=== PATIENT | female | born 1985 | race Caucasian/White ===

== ENCOUNTER 2019-05-18 07:53 | Outpatient (REF) | payer BC, SELFPAY | END 2019-05-18 08:13 | LOC: NCHCN 07:53 | PROVIDERS: PCP Nurse Practitioner Family; Visit Provider Nurse Practitioner Family | DX: R30.0 Dysuria (principal) | CPT/HCPCS: 87077; 87086; 87186 ==

== ENCOUNTER 2021-01-01 22:25 | Outpatient (REF) | payer BC, SELFPAY ==
[2021-01-02 19:51] LABS: COVID-19 RT-PCR UVMMC Result Negative (Negative)
== END 2021-01-01 22:26 | disposition home or self-care (01) ==
LOC: LBN 22:25
PROVIDERS: PCP Nurse Practitioner Family; Visit Provider Physician Assistant Medical
DX: Z20.822 Contact with and (suspected) exposure to COVID-19 (principal)
CPT/HCPCS: U0003

== ENCOUNTER 2022-05-20 20:11 | Outpatient (REF) | payer BC, SELFPAY ==
[2022-05-20 19:54] LABS: Iron 13 ug/dL (50-170)
[2022-05-20 20:22] LABS: Vitamin D 25 Total 12.8 ng/mL (30-100)
[2022-05-20 20:24] LABS: ALT 20 U/L (14-59); AST 19 U/L (15-37); Albumin 4.4 g/dL (3.4-5.0); Alkaline Phosphatase 73 U/L (46-116); Anion Gap 12.9 mmol/L (3-11); BUN 14 mg/dL (7-18); Bilirubin, Total 0.2 mg/dL (0.2-1.0); CO2 24.1 mmol/L (21.0-32.0); CREATININE 0.9 mg/dL (0.55-1.02); Calcium 9.5 mg/dL (8.5-10.1); Chloride 102 mmol/L (98-107); Estimated GFR 83.92 (mL/min/1.73m2); Ferritin 10 ng/mL (8-252); Glucose 77 mg/dL (74-106); Potassium 4.2 mmol/L (3.5-5.1); Sodium 139 mmol/L (136-145); TSH (W/Ref FT4) 0.93 uIU/mL (0.36-3.74); Total Protein 7.5 g/dL (6.4-8.2); Vitamin B12 500 pg/mL (193-986)
== END 2022-05-20 20:12 | disposition home or self-care (01) ==
LOC: NCHCN 20:11
PROVIDERS: Visit Provider Nurse Practitioner Family
DX: R53.83 Other fatigue (principal); N92.0 Excessive and frequent menstruation with regular cycle; G43.109 Migraine with aura, not intractable, without status migrainosus; E55.9 Vitamin D deficiency, unspecified
CPT/HCPCS: 80053; 82306; 82607; 82728; 83540; 84443

== ENCOUNTER 2022-05-22 09:23 | Outpatient (REF) | payer BC, SELFPAY ==
[2022-05-22 14:58] LABS: Abs Immature Grans 0.02 10^3/uL (0.0-0.06); Absolute Eosinophil Count 0.83 10^3/uL (0.0-0.7); Absolute Monocyte Count 0.55 10^3/uL (0.1-0.8); Basophils % 1.4; Eosinophils % 11.7; HCT 36.4 % (36.0-46.0); HGB 11.6 g/dL (11.2-15.7); Immature Grans % 0.3; Lymphocytes % 32.4; MCH 25.2 pg (27.0-33.0); MCHC 31.9 % (32.0-36.0); MCV 79 fL (80-95); Monocytes % 7.7; Neutrophils % 46.5; Platelet Count 223 10^3/uL (130-400); RDW 17.2 % (11.7-14.6); RDW-SD 47.9 fL
== END 2022-05-22 09:24 | disposition home or self-care (01) ==
LOC: NCHCN 09:23
PROVIDERS: Visit Provider Nurse Practitioner Family
DX: Z00.00 Encounter for general adult medical examination without abnormal findings (principal); R53.83 Other fatigue
CPT/HCPCS: 85025

== ENCOUNTER 2022-07-09 10:21 | Outpatient (REF) | payer BC, SELFPAY ==
--- NOTE | 2022-07-09 10:00 | PAPFT_PTH ---
PATIENT: Justina Brennan LOC: [facility] U#:[id number] AGE/SX: 36/F ROOM: RE07/09/[address]: Loan Gentile DO : 1985 BED: DIS: 07/09/2022 SPEC #: [id number] RECD: 07/09/22 12:41 STATUS: QUETA REQ #: [id number] YAHAIRA: 07/09/22 10:[address]: Loan Gentile [facility] Cytology RECD BY: Nataliia Renee Tissues: 1 - CX/ENDOCX FOR PAP SMEARS Procedures: PAP THIN PREP/[facility] Screening HPV DNA PROBE Comments: [id number] (CHLAMYDIA/GC)
--- NOTE | 2022-07-09 10:00 | ENDOMET_PTH ---
PATIENT: Justina Brennan LOC: [facility] U#:[id number] AGE/SX: 36/F ROOM: RE07/09/[address]: Loan Gentile DO : 1985 BED: DIS: 07/09/2022 SPEC #: [id number] RECD: 07/09/22 12:37 STATUS: QUETA REQ #: [id number] YAHAIRA: 07/09/22 10:[address]: Loan Gentile DEPT: Surgical Specimen RECD BY: Nataliia Renee Tissues: 1 - ENDOMETRIUM BX/UNIQUEETTE Procedures: GROSS AND MICRO LEVEL 4 Comments: [id number]
[2022-07-10 14:31] LABS: Chlamydia Result Negative (Negative); GC Result Negative (Negative)
== END 2022-07-09 10:22 | disposition home or self-care (01) ==
LOC: LBN 10:21
PROVIDERS: Visit Provider Obstetrics & Gynecology
DX: Z11.3 Encounter for screening for infections with a predominantly sexual mode of transmission (principal); Z12.4 Encounter for screening for malignant neoplasm of cervix; N93.8 Other specified abnormal uterine and vaginal bleeding; N85.8 Other specified noninflammatory disorders of uterus; Z11.51 Encounter for screening for human papillomavirus (HPV)
CPT/HCPCS: 87491; 87591; 88142; 88305; 87624

== ENCOUNTER 2022-11-15 16:25 | Outpatient (REF) | payer BC, SELFPAY ==
[2022-11-18 14:23] LABS: Chlamydia Result Negative (Negative); GC Result Negative (Negative)
== END 2022-11-15 16:26 | disposition home or self-care (01) ==
LOC: LBN 16:25
PROVIDERS: Visit Provider Obstetrics & Gynecology
DX: Z11.3 Encounter for screening for infections with a predominantly sexual mode of transmission (principal)
CPT/HCPCS: 87491; 87591

== ENCOUNTER → 2023-10-23 01:01 | Outpatient (CLI) | payer BC, SELFPAY ==
--- NOTE | 2023-10-23 | DI.MAMMO_ITS ---
Exam(s) MAMMO SCREENING EXAM: MAMMO SCREENING CLINICAL HISTORY: Baseline screening, Z12.31. TECHNIQUE: Bilateral full field digital CC and MLO mammographic images were obtained with 3D tomosyn thesis and utilizing computer aided detection (CAD). COMPARISON: None. This is a baseline mammogram on a 38-year-old FINDINGS: Fibroglandular tissue pattern is moderately dense. There are no CAD designations. There are no new spiculated masses nor malignant appearing microcalcification groups. There is no significant architectural distortion nor skin thickening-retraction. IMPRESSION: No radiographic evidence of malignancy. BI-RADS Category 1 - Negative Breast Density - Category C - Heterogeneously dense Breast density Category C or D implies that the patient has dense breast tissue. Dense breast tissue can make it harder to find cancer on a mammogram. Dense breast tissue is also associated with an incr eased risk of breast cancer. This information about the result of the mammogram report was provided to the patient to raise their awareness. Use this report when you speak with the patient about their risks for breast cancer, which includes their family history. At that time, you may recommend additional screening tests (Ultrasoun d or MRI) as these tests may add significant information. A negative radiographic report should not delay biopsy if a dominant or clinically suspicious mass is present. Up to ten percent of cancers are not identified on mammography. A negative report may reinforce clinical impression. Adenosis and dense breasts may obscure an underlying neoplasm. False positive reports average 6 to 10%. Patient will receive a letter notifying them of these results.
== END ==
PROVIDERS: Visit Provider Nurse Practitioner Family
DX: Z12.31 Encounter for screening mammogram for malignant neoplasm of breast (principal); R92.333 Mammographic heterogeneous density, bilateral breasts
CPT/HCPCS: 77063; 77067

== ENCOUNTER 2024-07-26 11:00 | Outpatient (REF) | payer BC, SELFPAY ==
[2024-07-26 15:43] LABS: HCT 37.7 % (36.0-46.0); HGB 12.7 g/dL (11.2-15.7); MCH 29.8 pg (27.0-33.0); MCHC 33.7 % (32.0-36.0); MCV 89 fL (80-95); MPV 12.3 fL (8.0-11.0); Platelet Count 217 10^3/uL (130-400); RBC 4.26 10^6/uL (3.93-5.22); RDW-SD 42.2 fL; WBC 6.55 10^3/uL (4.4-10.8)
[2024-07-26 16:29] LABS: ALT 16 U/L (14-59); AST 16 U/L (15-37); Albumin 4.3 g/dL (3.4-5.0); Alkaline Phosphatase 64 U/L (46-116); Anion Gap 10.3 mmol/L (3-11); BUN 13 mg/dL (7-18); Bilirubin, Total 0.6 mg/dL (0.2-1.0); CO2 24.7 mmol/L (21.0-32.0); CREATININE 1.1 mg/dL (0.55-1.02); Chloride 106 mmol/L (98-107); Estimated GFR 65.14 (mL/min/1.73m2); Ferritin 35 ng/mL (8-252); Glucose 85 mg/dL (74-106); Potassium 3.7 mmol/L (3.5-5.1); Sodium 141 mmol/L (136-145); TSH 0.89 uIU/mL (0.36-3.74); Total Protein 7.1 g/dL (6.4-8.2)
[2024-07-27 18:41] LABS: Calculated LDL 89 mg/dL (<100); Cholesterol 160 mg/dL (<200); HDL Cholesterol 61 mg/dL (>or=50); Triglyceride 52 mg/dL (<150)
[2024-07-27 18:49] LABS: Iron 108 ug/dL (50-170); Total Iron Binding Capacity 389 ug/dL (250-450); Transferrin Sat 28 % (15-50)
== END 2024-07-26 11:01 | disposition home or self-care (01) ==
LOC: NCHCN 11:00
PROVIDERS: PCP Nurse Practitioner Family; Visit Provider Nurse Practitioner Family
DX: Z00.00 Encounter for general adult medical examination without abnormal findings (principal); Z13.1 Encounter for screening for diabetes mellitus
CPT/HCPCS: 80053; 80061; 85027; 82728; 83540; 83550; 84443

== ENCOUNTER 2024-11-10 01:04 | Outpatient (CLI) | payer BC, SELFPAY ==
--- NOTE | 2024-11-10 | DI.MAMMO_ITS ---
Exam(s) MAMMO SCREENING EXAM: MAMMO SCREENING CLINICAL HISTORY: SCREENING, Z12.31 TECHNIQUE: Bilateral full field digital CC and MLO mammographic images were obtained with 3D tomosynthesis and utilizing computer aided detection (CAD). COMPARISON: Comparison is made with prior examinations. FINDINGS: Masses/Architectural Distortion: No suspicious masses or areas of architectural distortion are present. Microcalcifications: No suspicious pleomorphic-type are seen. Skin Thickening/Nipple Retraction: None. IMPRESSION: 1. No significant interval change with no specific features of malignancy noted. 2. Unless there is more urgent need, screening mammography is recommended, as per [employer] guidelines. BI-RADS Category 1 - Negative Breast Density - Category C - The breast are heterogeneously dense, which may obscure small masses. Breast density Category C or D implies that the patient has dense breast tissue. Dense breast tissue can make it harder to find cancer on a mammogram. Dense breast tissue is also associated with an increased risk of breast cancer. This information about the result of the mammogram report was provided to the patient to raise their awareness. Use this report when you speak with the patient about their risks for breast cancer, which includes their family history. At that time, you may recommend additional screening tests (Ultrasound or MRI) as these tests may add significant information. A negative radiographic report should not delay biopsy if a dominant or clinically suspicious mass is present. Up to ten percent of cancers are not identified on mammography. A negative report may reinforce clinical impression. Adenosis and dense breasts may obscure an underlying neoplasm. False positive reports average 6 to 10%. Patient will receive a letter notifying them of these results.
== END 2024-11-10 01:24 ==
PROVIDERS: PCP Nurse Practitioner Family; Visit Provider Physician Assistant
DX: Z12.31 Encounter for screening mammogram for malignant neoplasm of breast (principal); R92.333 Mammographic heterogeneous density, bilateral breasts
CPT/HCPCS: 77063; 77067